=== PATIENT | female | born 2000 | race Caucasian/White ===

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

== ENCOUNTER 2018-11-15 20:37 | Emergency (ER) | payer BC ==
[~2018-11-15] VITALS: Ht 154.9 cm; Wt 49.4 kg
[2018-11-15 21:06] LABS: BILIRUBIN,URINE NEGATIVE (NEG); CLARITY,URINE CLEAR; COLOR,URINE YELLOW; NITRITE,URINE NEGATIVE (NEG); PROTEIN,URINE NEGATIVE (NEG-TRACE); UROBILINOGEN,URINE 0.2 mg/dL (0.2 mg/dL)
[2018-11-15 21:17] LABS: BACTERIA,URINE MANY /HPF (0-FEW); SQUAMOUS EPITHELIAL CELL,UR MOD /LPF
--- NOTE | 2018-11-15 21:17 | PHYS DOC ---
Past Medical History Past Medical History: No Pertinent History Past Surgical History: Appendectomy Alcohol Use: None Drug Use: None Adult General Chief Complaint Chief Complaint: VAGINAL BLEEDING HPI HPI 18-year-old female presents to ER for complaints of vaginal bleeding which started approximately one hour ago. Patient states she is approximately 12 weeks 2 para 0. She [place] when she had onset of bleeding and right-sided lower abdominal pain. She is currently denying any pain. She denies fever, urinary symptoms, or nausea and vomiting. Patient states bowel movements have been regular. She reports her LMP was 08/21/18. She denies soaking through a pad stating bleeding has been sm. amt. Patient reports she did have sexual intercourse in the past 24 hours denies any pain during. Patient denies any recent falls or injury. Review of Systems Review of Systems Constitutional: Denies fever or chills [] Eyes: Denies change in visual acuity, redness, or eye pain [] HENT: Denies nasal congestion or sore throat [] Respiratory: Denies cough or shortness of breath [] Cardiovascular: No additional information not addressed in HPI [] GI: Denies nausea, vomiting, bloody stools or diarrhea. Reports intermittent rt lower abd pain : Denies urinary sxs. Reports vaginal bleeding- sm. amt denying clots/tissue Musculoskeletal: Denies back pain or joint pain [] Integument: Denies rash or skin lesions [] Neurologic: Denies headache, focal weakness or sensory changes. Denies dizziness All other systems were reviewed and found to be within normal limits, except as documented in this note. Allergies Allergies Allergies Coded Allergies Type Severity Reaction Last Updated Verified No Known Drug Allergies 11/15/18 No Physical Exam Physical Exam Constitutional: Well developed, well nourished, no acute distress, non-toxic appearance. [] HENT: Normocephalic, atraumatic, oropharynx moist, nose normal. [] Eyes: Pupils equal, conjunctiva normal, no discharge. [] Neck: Normal range of motion, no tenderness, supple, no stridor. [] Cardiovascular: Heart rate regular rhythm, no murmur [] Lungs & Thorax: Bilateral breath sounds clear to auscultation- resp. equal/nonlabored Abdomen: Bowel sounds normal, soft, no tenderness/distention/rigidity, no masses, no pulsatile masses. [] Skin: Warm, dry, no erythema, no rash. [] Back: No tenderness, no CVA tenderness. [] Extremities: No tenderness, no cyanosis, no clubbing, ROM intact, no edema. [] Neurologic: Alert and oriented X 3, normal motor function, normal sensory function, no focal deficits noted. [] Psychologic: Affect normal, judgement normal, mood normal. [] Current Patient Data Vital Signs Vital Signs Date Time Temp Pulse Resp B/P (MAP) Pulse Ox O2 Delivery O2 Flow Rate FiO2 11/15/18 20:52 98.4 100 16 119/70 (86) 100 Room Air 98.4 Lab Values Laboratory Tests Test 11/15/18 20:57 11/15/18 21:00 11/15/18 21:18 Urine Collection Type Unknown Urine Color Yellow Urine Clarity Clear Urine pH 6.0 Urine Specific [place] 1.015 Urine Protein Negative mg/dL (NEG-TRACE) Urine Glucose (UA) Negative mg/dL (NEG) Urine Ketones (Stick) Negative mg/dL (NEG) Urine Blood Large (NEG) Urine Nitrite Negative (NEG) Urine Bilirubin Negative (NEG) Urine Urobilinogen Dipstick 0.2 mg/dL (0.2 mg/dL) Urine Leukocyte Esterase Small (NEG) Urine RBC 3-5 /HPF (0-2) Urine WBC 5-10 /HPF (0-4) Urine Squamous Epithelial Cells Mod /LPF Urine Bacteria Many /HPF (0-FEW) POC Urine HCG, Qualitative Hcg positive (Negative) Maternal Serum HCG Beta Subunit 5011 mIU/mL (0-5) H Microbiology 11/15/18 Wet Prep - Final, Complete EKG EKG [] Radiology/Procedures Radiology/Procedures Pelvic Exam: RN Hui present 2109 Abdomen: Nontender External Genitalia: Normal Skin- no rash/lesions Speculum: Normal vaginal mucosa, cervical os closed scant amt of darker red blood/mucous in vaginal vault- no clots/tissue. Bimanual: No adnexal masses or tenderness, No CMT PROCEDURE: OB < 14 WKS CLINICAL HISTORY: Right lower abdominal pain, vaginal bleeding. COMPARISON: None available. TECHNIQUE: transabdominal sonography was performed FINDINGS: The uterus measures 9.2 x 6.1 x 5 cm. The cervix measures 3.9 cm and appears closed. An intrauterine gestational sac is seen with irregular margins. A pole is identified with a crown rump length averaging 2.26 cm with an estimated gestational age of 9 weeks 0 days. However no cardiac motion is identified. No definite subchorionic fluid. The right ovary measures 3 x 2.6 x 2.3 cm. The left ovary measures 3.1 x 2.5 x 1.4 cm. There is no pelvic free fluid. IMPRESSION: 1. Intrauterine was identified and a pole is seen without heartbeat. At this gestational age based on crown-rump length, a heart beat should be observed, bringing concern for nonviable . Follow-up in one week with ultrasound is recommended. Consider follow-up with serial hCG as well. 2. No abnormal adnexal masses Electronically signed by: Darius Mobley MD (11/15/2018 11:16 PM) [facility] DICTATED and SIGNED BY: DARIUS MOBLEY MD DATE: 11/15/18 2310 Course & Med Decision Making Course & Med Decision Making Pertinent Labs and Imaging studies reviewed. (See chart for details) [] Dragon Disclaimer Dragon Disclaimer This electronic medical record was generated, in whole or in part, using a voice recognition dictation system. Departure Departure Impression: Primary Impression: Vaginal bleeding affecting early Additional Impressions: Abdominal pain affecting Urinary tract infection Referrals: FAHAD REYNOSO MD (PCP) Patient Instructions: Abdominal Pain During , Pelvic Rest, Threatened Miscarriage, Urinary Tract Infection, Vaginal Bleeding During , First Trimester Additional Instructions: Drink plenty of water daily. Eat well balanced meals. You will need your level rechecked- today's level was 5011. Call and schedule appointment for a blood redraw in 48 hours with your [employer]. Scripts Cephalexin (KEFLEX) 500 Mg Capsule 1 CAP PO BID, #14 CAP 0 Refills Prov: BASHIR FAGAN APRN 11/15/18 Problem Qualifiers BASHIR FAGAN APRN Nov 15, 2018 21:17
--- NOTE | 2018-11-15 23:19 | RAD ---
CLINICAL HISTORY: Right lower abdominal pain, vaginal bleeding. COMPARISON: None available. TECHNIQUE: transabdominal sonography was performed FINDINGS: The uterus measures 9.2 x 6.1 x 5 cm. The cervix measures 3.9 cm and appears closed. An intrauterine gestational sac is seen with irregular margins. A pole is identified with a crown rump length averaging 2.26 cm with an estimated gestational age of 9 weeks 0 days. However no cardiac motion is identified. No definite subchorionic fluid. The right ovary measures 3 x 2.6 x 2.3 cm. The left ovary measures 3.1 x 2.5 x 1.4 cm. There is no pelvic free fluid. IMPRESSION: 1. Intrauterine was identified and a pole is seen without heartbeat. At this gestational age based on crown-rump length, a heart beat should be observed, bringing concern for nonviable . Follow-up in one week with ultrasound is recommended. Consider follow-up with serial hCG as well. 2. No abnormal adnexal masses Electronically signed by: Darius Mobley MD (11/15/2018 11:16 PM) [facility]
[2018-11-15] MEDS ORDERED: CEPH-264 PO (23:22)
[2018-11-15 23:48] VITALS: BP 117/62
[2018-11-17 17:09] LABS: GC PROBE Negative (Negative)
[2018-11-18] MEDS ORDERED: HYDR-3164 PO (14:59)
[2018-11-18] MEDS ORDERED: NAPR-514 PO (14:59)
[2018-11-18] MEDS ORDERED: DOXY100C14 PO (15:01)
[2018-11-18] MEDS ORDERED: METH0.2T36 PO (15:01)
== END 2018-11-15 23:40 | disposition home or self-care (01) ==
LOC: ER 20:37
DX: O20.8 Other hemorrhage in early pregnancy (principal); O23.41 Unspecified infection of urinary tract in pregnancy, first trimester; R10.30 Lower abdominal pain, unspecified; Z90.89 Acquired absence of other organs; Z3A.12 12 weeks gestation of pregnancy
CPT/HCPCS: 36415; 76801; 81001; 81025; 84702; 86900; 86901; 87086; 87491; 87591; 99285; Q0111

== ENCOUNTER → 2018-11-18 | Day surgery (SDC) | payer BC ==
[~2018-11-18] MED LIST: AZITHROMYCIN 500 MG in IV NORMAL SALINE 250ML 250 ML IV ONE; CEPH-264 PO; DEXAMETHASONE SOD PHOS 4 MG/ML VIAL ONE; DOXY100C14 PO; HYDR-3164 PO; HYDROcodone/APAP 5/325MG 1 TAB TABLET PO ONE; HYDROmorphone 2 MG/ML VIAL IV PRN; IV RINGERS,LACTATED 1000ML 1,000 ML IV SCH; LIDOCAINE 1% PF 2 ML VIAL. ID PRN; METH0.2T36 PO; METHYLERGONOVINE MALEATE 0.2 MG/ML VIAL. IM ONE; MIDAZOLAM HCL/PF 2 MG/2 ML VIAL. ONE; MORPHINE SULFATE 2 MG/ML VIAL. IV PRN; NAPR-514 PO; ONDANSETRON PF 4 MG/2 ML VIAL. IV PRN; ONDANSETRON PF 4 MG/2 ML VIAL. ONE; OXYTOCIN 10 UNIT/ML VIAL. ONE; PROCHLORPERAZINE 10 MG/2 ML VIAL. IV PRN; PROPOFOL 20 ML IV ONE; fentaNYL PF VIAL 100 MCG/2 ML VIAL IV PRN; fentaNYL PF VIAL 100 MCG/2 ML VIAL ONE
--- NOTE | 2018-11-18 14:57 | PDOC ---
BRIEF OPERATIVE NOTE Date: Nov 18, 2018 Pre-Op Diagnosis Incomplete AB Post-Op Diagnosis Same Procedure Performed Suction D and C Surgeon Princess Historical Interpreter None Anesthesia Type: General Blood Loss 100cc Specimens Obtained POC Findings Dictated Complications None LORI IRELAND MD Nov 18, 2018 14:57
--- NOTE | 2018-11-18 15:36 | OP ---
DATE OF SURGERY: 11/18/2018 PREOPERATIVE DIAGNOSIS: Incomplete . POSTOPERATIVE DIAGNOSIS: Incomplete . PROCEDURE: Suction D and C. SURGEON: Dougie Sánchez MD [employer] FI[employer] TECHNICIAN: None. ANESTHESIA: General. ESTIMATED BLOOD LOSS: 100 mL. FLUIDS: Crystalloid. SPECIMENS: Products of conception. COMPLICATIONS: None. CONDITION: Stable. DESCRIPTION OF PROCEDURE: After risks, benefits, indications, alternatives, and expectations discussed in detail with the patient, the patient was brought to OR theater, placed in the dorsal lithotomy position in Bud stirrups. After adequate general anesthesia, the patient was prepped and draped in usual sterile manner. Exam under anesthesia was performed. Uterus was approximately 8-week size, anteflexed and consistent with . Posterior weighted speculum was placed in the vaginal vault. Cervix was grasped with single-tooth tenaculum. Cervix was dilated up with Hegar dilators to #12 and #10 curved suction cannula was passed through the cervical os after removing the Hegar dilator. A gentle suction curettage was performed in all quadrants. Products of conception were seen going through the clear tubing. Sharp curettage was then performed in a usual manner. Usual cry was heard. Once again, the suction cannula was passed through the cervical os. No further products of conception were noted. There was some bleeding, however. Pitocin was started. The patient was given 0.2 Methergine IM and her bleeding was consistent with the procedure. Vaginal vault was wiped clean of any tissue or blood. Single-tooth tenaculum was removed. Puncture sites were hemostatic. Sponge, needle, and instrument counts were correct x 2 per nursing staff. The patient went to postop anesthesia recovery in stable condition. DOUGIE SÁNCHEZ MD DR: JUS/joaquin JOB#: [id number] / [id number]
[2018-11-18 16:20] VITALS: BP 113/57
--- NOTE | 2018-11-20 17:06 | PATHOLOGY ---
[facility] Accession Number: [id number] . 01 Material submitted: . product of conception - PRODUCTS OF CONCEPTION . 01 Clinical history: . Incomplete AB . 02 Diagnosis: Uterine contents, suction D and C: - Products of conception comprised of placental membranous tissue, immature chorionic villi showing focal degenerative changes and focally containing nucleated red blood cells, and segments of decidual tissue showing focal hemorrhage, necrosis, and acute inflammation. (JPM/db; 11/20/2018) LBQ/11/20/2018 . 02 Electronically signed: . Moose Ruiz MD, Pathologist NPI- [id number] . 01 Gross description: . The specimen is received in formalin, labeled "MunozSalinas, Yisel, products of conception" and consists of abundant blood clot admixed with soft villous/spongy swartz-brown tissue measuring 9.5 x 8.0 x 1.3 cm. A gestational sac is identified. No parts or vesicular structures are identified. Trolley Worker tissue is submitted in A1-A3. (SDY; 11/19/2018) SYU/SYU . 02 Pathologist provided ICD-10: O03.4 . 02 CPT . 759145 Specimen Comment: A courtesy copy of this report has been sent to Specimen Comment: [phone], . Specimen Comment: Report sent to / DR REYNOSO Performed at: 01 [facility] [address], [place] [id number] MD Kennedy Gagnon MD Phone: [phone] Performed at: 02 [facility] [address] [place], [place] [id number] MD Moose Ruiz MD Phone: [phone]
== END ==
LOC: SURG 12:36
PROVIDERS: ATTEND Specialist
DX: O03.4 Incomplete spontaneous abortion without complication (principal); Z3A.08 8 weeks gestation of pregnancy
CPT/HCPCS: 36415; 59812; 86850; 86900; 86901; J0456; J1100; J2210; J2250; J2405; J2590; J2704; J3010; J7050; A7015; C1769; J7120; J7030